=== PATIENT | female | born 1925 | race Caucasian/White ===

== ENCOUNTER 2016-11-14 09:28 | Emergency (ER) | payer MEDICARE, MEDICAID ==
[~2016-11-14] VITALS: Ht 149.9 cm; Wt 72.6 kg
[2016-11-14 09:28] VITALS: BP 164/84; PULSE 75; RESP 18; TEMP 98.7; O2SAT 98
--- NOTE | 2016-11-14 09:28 | NUR ---
Patient to bed 7 to gown for evaluation, daughter present. Report given to Mathew HARVEY
--- NOTE | 2016-11-14 09:33 | NUR ---
Per family, pt states she "closed a sliding door on back of R hand". Skin non-intact, no active bleeding. Pt denies pain when flexing and extending hand, cap refill brisk. Purple colored bruising noted around injury site, states "burning sensation present" at injury site. No other complaints noted. Addendum: 11/14/16 at 1103 by NEEL "closed a sliding door on dorsal aspect of R hand"-area of non-intact present, no active bleeding.
--- NOTE | 2016-11-14 09:34 | NUR ---
ER Dr. Pablo at bedside examining patient.
[2016-11-14] MEDS ORDERED: DIPH-TET-PERTUS Vaccine 0.5 ML VIAL (ADACEL) IM ONE (10:00)
[2016-11-14] MEDS ORDERED: BACITRACIN 1 GM OINT TP ONE ×2 (10:00→10:57)
--- NOTE | 2016-11-14 10:00 | NUR ---
Patient's right hand skin tear cleansed w/ normal saline, patted dry w/gauze and well approximated per Dr. Pablo's order by Mathew HARVEY. Covered w/ oil emulsion dressing, non adherant dressing, and tegaderm (per MD order). No active bleeding, pt tolerated well.
--- NOTE | 2016-11-14 10:40 | NUR ---
Patient now stating that she would like 2 week old small burn site on left forearm treated as well. Denies pain, states that "it sometimes hill". Dr. Pablo notified-assessed site. Site of complaint to left forearm has small red, clean and dry, healed area. Lucho HARVEY applied Bacitracin to site, covered w/ non adherant dressing and tegaderm per Dr. Pablo's verbal order.
[2016-11-14 10:45] VITALS: BP 162/84; PULSE 73; RESP 16; TEMP 98.5; O2SAT 99
--- NOTE | 2016-11-14 10:45 | NUR ---
Patient given written and verbal discharge instructions and verbalizes understanding. ER MD discussed with patient the results and treatment provided. Patient in stable condition. ID arm band removed. Patient educated on pain management and to follow up with PMD. Pain Scale 2. Opportunity for questions provided and answered.
== END 2016-11-14 10:45 | disposition home or self-care (01) ==
LOC: SED 09:28
DX: S61.411A Laceration without foreign body of right hand, initial encounter (principal); W25.XXXA Contact with sharp glass, initial encounter; Y93.89 Activity, other specified; Y92.89 Other specified places as the place of occurrence of the external cause; Y99.8 Other external cause status
CPT/HCPCS: 90715; 99283